=== PATIENT | female | born 1960 | race Asian ===

== ENCOUNTER 2016-04-29 14:04 | Observation (INO) | payer OTHER ==
[2016-04-29] VITALS (7 sets, daily range): BP systolic 140–191; BP diastolic 68–99; TEMP 98–98.4; Ht 154.9 cm; Wt 80.5 kg
[~2016-04-29] VITALS: Ht 154.9 cm; Wt 80.5 kg
[~2016-04-29 14:04] MED LIST: AMBIEN5 MG PO; CYCL10TA35 PO; FLUOXETINE40 MG PO; LISI20TA11 PO; SOMA350 MG PO; TRAM50TA PO
[2016-04-29 15:34] LABS: PLATELET COUNT 409 K/uL (152-353)
[2016-04-29 15:39] LABS: POTASSIUM 4.6 mmol/L (3.6-5.2); SODIUM 135 mmol/L (136-145)
[2016-04-30 00:08] VITALS: BP 128/66; TEMP 98
--- NOTE | 2016-04-30 02:06 | NUR ---
04/29/16 1950: RECEIVED PT FROM ER BY WHEELCHAIR. PT BEING ADMITTED WITH BACK AND FLANK PAIN. IV TO LEFT AC INFILTRATED, AND IV DC'D INTACT. NEW IV STARTED IN RIGHT FOREARM WITH 20G. IV FLUID INFUSING WITHOUT DIFFICULTY.
[2016-04-30] MEDS ORDERED: PROZAC10 MG PO (03:13)
[2016-04-30] MEDS ORDERED: LISI10TA11 PO (03:16)
--- NOTE | 2016-04-30 03:48 | NUR ---
PT WALKING IN HALLWAY WITH NO COMPLAINTS OF PAIN.
[2016-04-30 04:00] VITALS: BP 131/64; TEMP 97.9
[2016-04-30 07:55] VITALS: BP 146/76; TEMP 97.7
[2016-04-30 09:56] LABS: PLATELET COUNT 312 K/uL (152-353)
[2016-04-30 10:11] LABS: POTASSIUM 3.8 mmol/L (3.6-5.2); SODIUM 135 mmol/L (136-145)
[2016-04-30 12:00] VITALS: BP 142/70; TEMP 98
[2016-04-30 16:00] VITALS: BP 127/58; TEMP 98.3
[2016-04-30 20:00] VITALS: BP 127/53; TEMP 97.6
[2016-05-01] VITALS: BP 116/54; TEMP 98.1
[2016-05-01 04:00] VITALS: BP 145/85; TEMP 97.6
[2016-05-01 08:00] VITALS: BP 131/55; TEMP 98.4
[2016-05-01 12:00] VITALS: BP 128/59; TEMP 98.2
== END 2016-05-01 16:10 | disposition home or self-care (01) ==
LOC: ED 14:04 → MED/SURG 18:22
PROVIDERS: Emergency Medicine; ADMIT Emergency Medicine
DX: M54.5 Low back pain (principal); D72.828 Other elevated white blood cell count; I10 Essential (primary) hypertension; K76.0 Fatty (change of) liver, not elsewhere classified
CPT/HCPCS: 36415; 80048; 80053; 81000; 85027; 96360; 96365; 96366; 96375; 96376; 99220; 99284; G0378; J1650; J1885; J2270; J2405; J3490

== ENCOUNTER 2018-12-01 09:16 | Outpatient (CLI) | payer OTHER ==
[~2018-12-01 09:16] MED LIST changes: +LISI10TA11 PO; +PROZAC10 MG PO
== END 2018-12-01 20:34 | disposition home or self-care (01) ==
LOC: MRI 09:16
DX: M54.17 Radiculopathy, lumbosacral region (principal)

== ENCOUNTER 2020-02-28 18:09 | Emergency (ER) | payer OTHER ==
[~2020-02-28] VITALS: Ht 154.9 cm; Wt 70.8 kg
[2020-02-28 19:40] VITALS: BP 130/79; TEMP 97.6
== END 2020-02-28 19:40 | disposition home or self-care (01) ==
LOC: ED 18:09
DX: M25.562 Pain in left knee (principal); G89.29 Other chronic pain; W10.9XXA Fall (on) (from) unspecified stairs and steps, initial encounter; Y92.098 Other place in other non-institutional residence as the place of occurrence of the external cause
CPT/HCPCS: 96372; 99283; J1885; J2270; J2930

== ENCOUNTER 2022-03-07 14:05 | Emergency (ER) | payer OTHER ==
[~2022-03-07] VITALS: Ht 154.9 cm; Wt 70.8 kg
[2022-03-07 14:10] VITALS: BP 141/81; TEMP 97.2
== END 2022-03-07 18:02 | disposition home or self-care (01) ==
LOC: ED 14:05
PROC: 2W3RX1Z Immobilization of Left Lower Leg using Splint (ICD-10-PCS; principal; 2022-03-07)
DX: M54.59 Other low back pain (principal); M51.86 Other intervertebral disc disorders, lumbar region; M25.572 Pain in left ankle and joints of left foot; X50.9XXA Other and unspecified overexertion or strenuous movements or postures, initial encounter; Y93.F2 Activity, caregiving, lifting; Y92.89 Other specified places as the place of occurrence of the external cause
CPT/HCPCS: 96372; 99283; J1100; J1885; J2175; J2550

== ENCOUNTER 2022-10-28 09:09 | Outpatient (CLI) | payer OTHER | END 2022-10-28 19:00 | disposition home or self-care (01) | LOC: RESP 09:09 → MAMMO 12:00 → RESP 19:00 | PROVIDERS: ATTEND Nurse Practitioner Acute Care | DX: R06.09 Other forms of dyspnea (principal); Z12.31 Encounter for screening mammogram for malignant neoplasm of breast ==